=== PATIENT | male | born 1995 | race Caucasian/White ===

== ENCOUNTER 2017-11-18 19:09 | Emergency (ER) | payer OTHER ==
[2017-11-18 19:27] VITALS: BP 143/82
[2017-11-18] MEDS ORDERED: NAPROXEN 250 MG TABLET PO STA (20:07)
--- NOTE | 2017-11-18 20:32 | XRAY Report ---
Reason: fall at work Procedure Date: 11/18/2017 Accession Number: [id number] / [id number] Procedure: XR - Shoulder 3 View RT CPT Code: FULL RESULT: EXAM: RIGHT SHOULDER RADIOGRAPHY EXAM DATE: 11/18/2017 07:55 PM. CLINICAL HISTORY: Shoulder pain after a fall. COMPARISON: None. TECHNIQUE: 3 views. FINDINGS: Bones: Normal. No fracture or bone lesion. Joints: The glenohumeral and acromioclavicular joints are normal. Soft tissues: The visualized hemithorax is unremarkable. No soft tissue calcification. IMPRESSION: Normal shoulder radiography. [facility]
--- NOTE | 2017-11-18 20:33 | XRAY Report ---
Reason: fall at work Procedure Date: 11/18/2017 Accession Number: [id number] / [id number] Procedure: XR - Elbow 3 View RT CPT Code: FULL RESULT: EXAM: RIGHT ELBOW RADIOGRAPHY EXAM DATE: 11/18/2017 07:55 PM. CLINICAL HISTORY: Elbow pain after a fall. Unable to extend. COMPARISON: None. TECHNIQUE: 4 views. FINDINGS: Bones: Normal. No fractures or bone lesions. Joints: Normal. No effusion. No subluxation. Soft Tissues: Unremarkable. IMPRESSION: Normal elbow radiography. [facility]
--- NOTE | 2017-11-18 20:39 | ED Physician Documentation ---
History of Present Illness - Stated complaint Stated Complaint: SHOULDER INJ - Chief complaint Chief Complaint: General - History obtained from History obtained from: Patient - Additonal information Additional information: 22-year-old female presents the emergency department with complaints of right upper extremity pain from his shoulder to his elbow. The patient fell striking his elbow and shoulder. The patient denies injury to his head, neck, torso or lower extremities. Symptoms are described as moderate. No other associated symptoms. No relieving factors Review of Systems Constitutional: denies: Fever Eyes: denies: Discharge Ears: denies: Ear pain Throat: denies: Oral lesions / sores Cardiac: denies: Chest pain / pressure Skin: denies: Lesions Musculoskeletal: reports: Extremity pain, Joint pain. denies: Neck pain, Extremity swelling, Joint swelling Neurologic: denies: Head injury PD PAST MEDICAL HISTORY - Past Medical History Past Medical History: No - Past Surgical History Past Surgical History: No - Present Medications Home Medications: Ambulatory Orders Medication Instructions Recorded Confirmed No Known Home Medications [No 11/18/17 11/18/17 Known Home Medications] - Allergies Allergies/Adverse Reactions: Allergies Allergy/AdvReac Type Severity Reaction Status Date / Time Penicillins Allergy Hives Verified 11/18/17 19:28 - Social History Does the pt smoke?: No Smoking Status: Never smoker Does the pt drink ETOH?: Yes PD ED PE NORMAL - General General: Alert and oriented X 3, No acute distress - HEENT HEENT: Atraumatic, PERRL, EOMI - Neck Neck: No bony TTP - Respiratory Respiratory: No respiratory distress - Derm Derm: Normal color, Warm and dry - Extremities Extremities: No deformity, Normal ROM s pain, No edema. No: No tenderness to palpate (The patient has tenderness to palpation in his right shoulder humerus and elbow. The patient has full active range of motion of the shoulder, elbow, hand and wrist. The patient has no tenderness in the forearm, wrist or hand. The patient has normal cap refill. The patient has normal median, ulnar and radial nerve. A normal radial pulse. No laceration or obvious deformity) Results - Vitals Vitals: Vital Signs - 24 hr 11/18/17 19:25 Temperature 36.6 C Heart Rate 60 Respiratory 18 Rate Blood Pressure 143/82 H O2 Saturation 100 Oxygen O2 Source Room air - Rads (name of study) XR Shoulder/Elbow Radiology: Final report received PD MEDICAL DECISION MAKING - ED course ED course: No acute fracture on x-ray. The patient appears to have a contusion. The patient appears appropriate for discharge and ongoing outpatient management. I discussed with the findings and plan. The patient understands and agrees. I discussed warning signs and recommended returning to the emergency department immediately for any worsening or any concerns. - Sepsis Event Vital Signs: Vital Signs - 24 hr 11/18/17 19:25 Temperature 36.6 C Heart Rate 60 Respiratory 18 Rate Blood Pressure 143/82 H O2 Saturation 100 Oxygen O2 Source Room air Departure - Departure Disposition: 01 Home, Self Care Clinical Impression: Upper extremity injury Qualifiers: Encounter type: initial encounter Laterality: unspecified laterality Qualified Code(s): S49.90XA - Unspecified injury of shoulder and upper arm, unspecified arm, initial encounter Condition: Good Instructions: ED Contusion Upper Extr Ch Comments: Please follow-up with primary care in 7-10 days. Please return to the emergency department for worsening symptoms or any concerns
== END 2017-11-18 21:04 | disposition home or self-care (01) ==
LOC: ED 19:09
DX: S49.90XA Unspecified injury of shoulder and upper arm, unspecified arm, initial encounter (principal); W01.0XXA Fall on same level from slipping, tripping and stumbling without subsequent striking against object, initial encounter; Y99.0 Civilian activity done for income or pay
CPT/HCPCS: 73030; 73080; 99283; A9270

== ENCOUNTER 2018-03-05 05:45 | Emergency (ER) | payer OTHER ==
[2018-03-05] MEDS ORDERED: SODIUM CHLORIDE 0.9% 1,000 ML IV STA (06:06)
--- NOTE | 2018-03-05 06:06 | ED Physician Documentation ---
PD HPI NVD - Stated complaint Stated Complaint: N/V/D - Chief complaint Chief Complaint: Abd Pain - History obtained from History obtained from: Patient - History of Present Illness Timing - onset: How many days ago (4-5) Timing - duration: Days Pain level max: 0 Pain level now: 0 Associated symptoms: No: Fever, Abdominal pain Improved by: Other (no ameliorating factors) Worsened by: Other (no exacerbating factors) Recently seen: Clinic (seen at [facility] (day of symptom onset)) - Additonal information Additional information: patient developed diarrhea, nausea, and lightheadedness on (4 days ago), was evaluated at [facility], given zofran rx. Symptoms had nearly resolved until this morning when he woke with diarrhea, nausea, and "dry heaving" (per patient). Review of Systems Constitutional: denies: Fever, Chills, Sweats Cardiac: reports: Reviewed and negative Respiratory: reports: Reviewed and negative GI: reports: Nausea, Vomiting, Diarrhea. denies: Abdominal Pain : denies: Dysuria, Frequency PD PAST MEDICAL HISTORY - Past Medical History Past Medical History: No - Past Surgical History Past Surgical History: No - Present Medications Home Medications: Ambulatory Orders Medication Instructions Recorded Confirmed Diphenoxylate/Atropine [Lomotil] 1 each PO QID PRN #14 tablet 03/05/18 - Allergies Allergies/Adverse Reactions: Allergies Allergy/AdvReac Type Severity Reaction Status Date / Time Penicillins Allergy Hives Verified 03/05/18 05:54 - Social History Does the pt smoke?: No Smoking Status: Never smoker Does the pt drink ETOH?: Yes Does the pt have substance abuse?: No - Immunizations Immunizations are current?: Yes - POLST Patient has POLST: No PD ED PE NORMAL - Vitals Vital signs reviewed: Yes - General General: Alert and oriented X 3, No acute distress, Well developed/nourished - HEENT HEENT: Other (pasty/tacky mucous membranes) - Neck Neck: Supple, no meningeal sign - Cardiac Cardiac: RRR, No murmur - Respiratory Respiratory: No respiratory distress, Clear bilaterally - Abdomen Abdomen: Normal bowel sounds, Soft, Non tender, Non distended Results - Vitals Vitals: Vital Signs - 24 hr 03/05/18 03/05/18 05:52 07:21 Temperature 36.3 C L Heart Rate 72 86 Respiratory 18 14 Rate Blood Pressure 133/71 H 130/90 H O2 Saturation 99 99 Oxygen O2 Source Room air - Labs Labs: Laboratory Tests 03/05/18 03/05/18 06:17 06:17 WBC 5.3 RBC 5.37 Hgb 16.9 Hct 50.0 MCV 93.2 MCH 31.4 H MCHC 33.7 RDW 13.3 Plt Count 180 MPV 8.1 Neut # (Auto) 2.7 Lymph # (Auto) 1.8 [place] # (Auto) 0.6 Eos # (Auto) 0.2 Baso # (Auto) 0.1 Absolute Nucleated RBC 0.00 Nucleated RBC % 0.1 Sodium 137 Potassium 3.7 Chloride 103 Carbon Dioxide 29 Anion Gap 5.0 L BUN 13 Creatinine 0.9 Estimated GFR (MDRD) 107 Glucose 93 Calcium 9.2 Total Bilirubin 0.8 AST 22 ALT 20 Alkaline Phosphatase 57 Total Protein 8.2 Albumin 4.7 Globulin 3.5 Albumin/Globulin Ratio 1.3 Lipase 34 PD MEDICAL DECISION MAKING - ED course Complexity details: reviewed results, re-evaluated patient, considered differential, d/w patient ED course: On reevaluation, after tests resulted, IV fluids, and PO lomotil, patient appears well and reports improvement in symptoms. Was not able to provide a stool sample during ED stay, but suspicion for bacterial illness is low (no fever, nontender and no abd. pain c/o, normal WBC, denies blood in stool/black tarry stool). Departure - Departure Disposition: 01 Home, Self Care Clinical Impression: Gastroenteritis Condition: Good Instructions: ED Gastroenteritis Viral Follow-Up: [facility] [Provider Group] Prescriptions: Diphenoxylate/Atropine [Lomotil] 1 each PO QID PRN #14 tablet PRN Reason: Diarrhea Forms: Activity restrictions
[2018-03-05] MEDS ORDERED: DIPHENOX/ATROPINE 2.5/0.025 MG TABLET PO STA (06:07)
[2018-03-05 06:34] LABS: BASOPHILS # (AUTO) 0.1 10^3/uL (0.0-0.1); BASOPHILS % (AUTO) 1.2 %; EOSINOPHILS # (AUTO) 0.2 10^3/uL (0.0-0.7); EOSINOPHILS % (AUTO) 3.1 %; HGB - HEMOGLOBIN 16.9 g/dL (14.0-18.0); LYMPHOCYTES # (AUTO) 1.8 10^3/uL (1.5-3.5); LYMPHOCYTES % (AUTO) 34.1 %; MEAN CORPUSCULAR HEMOGLOBIN 31.4 pg (27.0-31.0); MEAN CORPUSCULAR HGB CONC 33.7 g/dL (32.0-36.0); MEAN CORPUSCULAR VOLUME 93.2 fL (80.0-94.0); MEAN PLATELET VOLUME 8.1 fL (7.4-11.4); MONOCYTES # (AUTO) 0.6 10^3/uL (0.0-1.0); MONOCYTES % (AUTO) 11.3 %; NEUTROPHILS # (AUTO) 2.7 10^3/uL (1.5-6.6); NEUTROPHILS % (AUTO) 50.3 %; PLT - PLATELET COUNT 180 10^3/uL (130-450); RED BLOOD COUNT 5.37 10^6/uL (4.70-6.10); RED CELL DISTRIBUTION WIDTH 13.3 % (12.0-15.0); WHITE BLOOD COUNT 5.3 x10^3/uL (4.8-10.8)
[2018-03-05 07:23] VITALS: BP 130/90
[2018-03-05 07:30] LABS: ALBUMIN 4.7 g/dL (3.2-5.5); ALBUMIN/GLOBULIN RATIO 1.3 (1.0-2.2); BILIRUBIN,TOTAL 0.8 mg/dL (0.2-1.0); CALCIUM 9.2 mg/dL (8.5-10.3); CREATININE 0.9 mg/dL (0.6-1.2); TOTAL PROTEIN 8.2 g/dL (6.7-8.2)
== END 2018-03-05 07:49 | disposition home or self-care (01) ==
LOC: ED 05:45
DX: K52.9 Noninfective gastroenteritis and colitis, unspecified (principal)
CPT/HCPCS: 36415; 80053; 83690; 85025; 96360; 99283; A9270